=== PATIENT | female | born 1930 | race Caucasian/White ===

== ENCOUNTER 2016-12-04 10:22 | Day surgery (SDC) | payer MEDICARE ==
[2016-12-04] MEDS ORDERED: LACTATED RINGERS 1,000 ML IV ONE (11:52)
[2016-12-04] MEDS ORDERED: BENZOCAINE/TETRACAINE/BUTAMBEN SPRAY 56 GM TOP ONE (12:26)
[2016-12-04] MEDS ORDERED: PROPOFOL 200 MG/20 ML VIAL IVP ONE (12:30)
[2016-12-04] MEDS ORDERED: MIDAZOLAM 2 MG/2 ML VIAL IVP ONE (12:30)
[2016-12-04] MEDS ORDERED: KETAMINE 500 MG/10 ML VIAL IVP ONE (12:30)
== END 2016-12-04 10:23 | disposition home or self-care (01) ==
PROC: 0DBP8ZX Excision of Rectum, Via Natural or Artificial Opening Endoscopic, Diagnostic (ICD-10-PCS; 2016-12-04)
PROC: 0DJ08ZZ Inspection of Upper Intestinal Tract, Via Natural or Artificial Opening Endoscopic (ICD-10-PCS; 2016-12-04)
PROC: 0DBH8ZX Excision of Cecum, Via Natural or Artificial Opening Endoscopic, Diagnostic (ICD-10-PCS; principal; 2016-12-04 12:00)
PROC: 0DBL8ZX Excision of Transverse Colon, Via Natural or Artificial Opening Endoscopic, Diagnostic (ICD-10-PCS; 2016-12-04 12:00)
DX: C20 Malignant neoplasm of rectum (principal); D12.0 Benign neoplasm of cecum; D12.3 Benign neoplasm of transverse colon; K21.9 Gastro-esophageal reflux disease without esophagitis; K20.9 Esophagitis, unspecified; K44.9 Diaphragmatic hernia without obstruction or gangrene; K64.8 Other hemorrhoids; K57.30 Diverticulosis of large intestine without perforation or abscess without bleeding; R63.4 Abnormal weight loss; D64.9 Anemia, unspecified; Z68.1 Body mass index [BMI] 19.9 or less, adult; F17.200 Nicotine dependence, unspecified, uncomplicated; I10 Essential (primary) hypertension
CPT/HCPCS: 43235; 45385; A9270; J7120

== ENCOUNTER 2016-12-19 11:19 | Outpatient (CLI) | payer MEDICARE | END 2016-12-19 11:20 | disposition home or self-care (01) | DX: C18.9 Malignant neoplasm of colon, unspecified (principal) ==

== ENCOUNTER 2017-01-03 11:41 | Outpatient (CLI) | payer MEDICARE ==
[2017-01-03] MEDS ORDERED: IOPAMIDOL-300 100 ML VIAL IVP ONE (14:06)
[2017-01-03] MEDS ORDERED: IOPAMIDOL-300 50 ML VIAL PO ONE (14:06)
== END 2017-01-03 11:42 | disposition home or self-care (01) ==
DX: C19 Malignant neoplasm of rectosigmoid junction (principal); N13.1 Hydronephrosis with ureteral stricture, not elsewhere classified; N32.89 Other specified disorders of bladder; R59.0 Localized enlarged lymph nodes

== ENCOUNTER 2017-03-09 17:45 | Outpatient (CLI) | payer MEDICARE | END 2017-03-09 17:46 | disposition critical access hospital (66) | DX: R53.1 Weakness (principal); R52 Pain, unspecified | CPT/HCPCS: A0425; A0427 ==

== ENCOUNTER 2017-03-09 18:13 | Emergency (ER) | payer MEDICARE ==
[2017-03-09] MEDS ORDERED: SODIUM CHLORIDE 0.9% 1,000 ML IV ONE ×2 (18:27→20:38)
[2017-03-09] MEDS ORDERED: LORazepam 2 MG/ML SYRINGE IVP STA ×2 (19:35→22:16)
[2017-03-09] MEDS ORDERED: LORazepam 2 MG/ML SYRINGE ONE ×2 (19:37→22:12)
[2017-03-09] MEDS ORDERED: CIPROFLOXACIN 400 MG/200 ML 200 ML IV ONE ×2 (19:46→19:50)
[2017-03-09] MEDS ORDERED: PIPERACILLIN/TAZOBACTAM 4.5 GM in SODIUM CHLORIDE 0.9% MINIBAG 100 ML IV STA (19:46)
[2017-03-09] MEDS ORDERED: VANCOMYCIN INJ 1 GM in SODIUM CHLORIDE 0.9% 250 ML IV STA (19:46)
[2017-03-09] MEDS ORDERED: VANCOMYCIN 1 GM VIAL ONE (21:28)
== END 2017-03-10 00:18 | disposition short-term general hospital (02) ==
DX: N28.9 Disorder of kidney and ureter, unspecified (principal); D72.825 Bandemia; N13.30 Unspecified hydronephrosis; R53.1 Weakness; C20 Malignant neoplasm of rectum; C67.9 Malignant neoplasm of bladder, unspecified; C79.9 Secondary malignant neoplasm of unspecified site; I10 Essential (primary) hypertension; Z87.891 Personal history of nicotine dependence; Z93.6 Other artificial openings of urinary tract status; Z66 Do not resuscitate
CPT/HCPCS: 36415; 70450; 71010; 74176; 80053; 81003; 83605; 83690; 83880; 84484; 85025; 85610; 85730; 87040; 87086; 93005; 93010; 96361; 96365; 96367; 96375; 96376; 99285; J2060; J3370